=== PATIENT | female | born 1980 | race Caucasian/White ===

== ENCOUNTER → 2025-02-04 13:28 | Outpatient (REF) | payer OTHER, SELFPAY | LOC: RAD 13:28 | PROVIDERS: ATTENDING PHYSICIAN Urology | DX: N39.0 Urinary tract infection, site not specified (principal); R10.2 Pelvic and perineal pain; R35.1 Nocturia; M62.89 Other specified disorders of muscle | CPT/HCPCS: 76770; 76856 ==